=== PATIENT | female | born 1980 | race Caucasian/White ===

== ENCOUNTER → 2020-12-01 09:27 | Outpatient (CLI) | payer OTHER, SELFPAY ==
--- NOTE | 2020-12-01 09:30 | DI.RAD.S_ITS ---
PROCEDURE: XR FINGER LT MIN 2V INDICATIONS: Pain in left 4th digit TECHNIQUE: AP hand, 2 views of the 4th finger(s) acquired. COMPARISON: None. FINDINGS: Bones: Mildly displaced distal tuft fracture distal phalanx of 4th finger. No dislocations. No suspicious bony lesions. Soft tissues: No suspicious soft tissue calcifications. IMPRESSION: 4th finger distal tuft fracture of distal phalanx. Dictated by: Erwin Ibarra M.D. on 12/01/2020 at 9:06 Approved by: Erwin Ibarra M.D. on 12/01/2020 at 9:07
== END ==
PROVIDERS: Referring Provider Nurse Practitioner; Visit Provider Nurse Practitioner
DX: S62.635A Displaced fracture of distal phalanx of left ring finger, initial encounter for closed fracture (principal); X58.XXXA Exposure to other specified factors, initial encounter
CPT/HCPCS: 73140

== ENCOUNTER → 2021-09-05 09:22 | Outpatient (ROUT) | payer OTHER, SELFPAY | PROVIDERS: Visit Provider Nurse Practitioner Obstetrics & Gynecology | DX: Z34.90 Encounter for supervision of normal pregnancy, unspecified, unspecified trimester (principal); Z36.85 Encounter for antenatal screening for Streptococcus B; Z3A.36 36 weeks gestation of pregnancy | CPT/HCPCS: 87081 ==

== ENCOUNTER 2021-10-04 11:52 | Inpatient (IN) | payer OTHER, SELFPAY ==
--- NOTE | 2021-10-04 12:06 | P.HPOB_ITS ---
OB HPI Date/Time Date of admission: 10/04/21 Date Patient Seen: 10/04/21 Time Patient Seen: 12:06 History of Present Condition Chief complaint: : 3 Para: 1 Estimated Date of Delivery: 10/01/21 Estimated Gestational Age (weeks): 40.3 Narrative: Maite Caal is a 41 year old female @ [id number] by early US who presents for evaluation of labor. PROM, clear fluid @ 0600 with reactive NST in office at 0900. Elected expectant management of labor. Contractions have progressed and she has been breathing through strong, regular contractions for the last hour. Lots of FM. no VB. care w/ CNM complicated by GDMA1. Desires low intervention . Declines CE. is present and supportive. History of Present care: good care, initiated at week # (11), number of visits (11) and pounds weight gain (38) Dating criteria: LMP confirmed by 1st trimester US Ultrasounds: normal mid trimester US Obstetrical complications: gestational diabetes (A1) Medical complications: none Preadmission Labs Blood type: O (+) positive -: Antibody screen: negative, GBS status: negative, HBsAG: negative, HIV: negative and RPR/VDLR: negative -: Chlamydia screen: not detected and Gonorrhea screen: not detected HCT: 33 HCAB: negative PAP: Normal Narrative: GTT Declined, GDM diagnosed based on QID BG testing Prior (ies) History: 1- (vaginal delivery), Ruddy, 07/07/2017, 41, 31 hr,Epidural,2?,Male7 lbs 4 oz 2-SAB (miscarriage), 07/22/2020, 8 Evaluation Evaluation Baseline heart rate: 125 Variability: Moderate (11-25) monitor accelerations: Present Monitor Decelerations: Absent Contraction Frequency (minutes): 3 Uterine Contraction Intensity: Moderate Status: Category l Comments: CE deferred ON LICENSE OF [facility] Medical History No significant medical problems Family History (Updated 10/04/21 @ 12:29 by Rebecca Botello CNM) Father Diabetes mellitus Social History (Updated 10/04/21 @ 12:29 by Rebecca Botello CNM) marital status: household members: spouse and children lives independently: Yes caregiver/support person: No housing: house Smoking Status: Never smoker Meds Home Medications and Allergies Home Medications Medication Instructions Recorded Confirmed Type No Known Home Medications 10/04/21 10/04/21 History Allergies Allergy/AdvReac Type Severity Reaction Status Date / Time No Known Drug Allergies Allergy Unverified 10/04/21 12:20 Review of Systems Review of Systems ROS: Yes All systems reviewed with the patient and are negative except as otherwise documented OB Exam Resp Effort & Inspection: normal respiratory effort Auscultation: clear to auscultation bilaterally Cardio Rate: regular rate Rhythm: regular rhythm and abnormal rhythm Heart Sounds: S1 normal and S2 normal Presentation: vertex Objective Labs Result Diagrams: 10/04/21 12:35 Assessment and Plan Assessment and Plan Assessment and Plan narrative: Term Primipara Active Labor SROM x 6 hours without sx of infection GDMA1 No indication for GBS prophylaxis Cat I FHR P: Admit, routine orders. Labor support, PRN. Reassess in 4 hours or sooner, PRN. Anticipate NSVB.
[2021-10-04 12:49] LABS: Add Manual Diff / Slide Review NO; Basophils Absolute Auto 100 /uL (0-100); Basophils Percent Auto 0.8 % (0-2); Eosinophils Absolute Auto 0 /uL (0-450); Eosinophils Percent Auto 0.1 % (2-4); Hematocrit 35.5 % (36-46); Hemoglobin 11.8 g/dL (12.0-16.0); Lymphocytes Absolute Auto 1600 /uL (1100-4500); Lymphocytes Percent Auto 14.9 % (25-40); Mean Corpuscular HGB Conc 33.3 % (30-36); Mean Corpuscular Hemoglobin 29.7 PG (26-34); Mean Corpuscular Volume 89.3 fL (80-100); Monocytes Absolute Auto 600 /uL (0-900); Monocytes Percent Auto 5.5 % (3-14); Neutrophils Absolute Auto 8600 /uL (1500-7000); Neutrophils Percent Auto 78.7 % (50-75); Platelet Count 224 X10^3/uL (150-400); Red Blood Cell Count 3.97 X10^6/uL (4.0-5.2); Red Cell Distribution Width 15.9 % (11.6-14.8); White Blood Cell Count 10.9 X10^3/uL (4.5-11.0)
[2021-10-04 13:01] VITALS: BP 128/82
[2021-10-04 13:19] LABS: COVID19 -Nasal RAPID Negative (Negative)
[2021-10-04] MEDS: OXYTOCIN PREMIX 30 UNIT/500 ML PLAST..BAG 200 UNIT IV (14:56)
--- NOTE | 2021-10-04 15:09 | PM.OBPRVD ---
Events: Premature Rupture Membrane Labor & Delivery Delivery date: 10/04/21 Intrapartal Events: None Cervical ripening method: none Induction method: none Delivery monitor: external FHT Route of delivery: Episiotomy description: None L&D Laceration Description: Periurethral - 1st Degree Estimated blood loss (mL): 175 Anesthesia Type: None [place]oden Baby 1: gender: Male Presentation: vertex Position: Left Occiput Anterior Placenta delivery description: Spontaneous Cord Vessel Description: 3 Vessels, Nuchal Cord and True Knot score (1 min): 8 score (5 min): 9 weight: 3.877 kg Narrative: Maite labored well in a variety of positions. Was presumed complete with spontaneous urge to push. NSVB of a vigorous baby boy in SHAUN position with a single loose nuchal cord in a true knot. Maite was recumbent on the CUB chair for and was assisted to hands and knees after the delivery of the head and tight shoulders were noted. occurred easily with Jaylon maneuver < 60 seconds after the delivery of the head. Nuchal was reduced and terminal meconium was noted. the was passed through maternal legs to [facility]. The couplet was assisted to bed. 30 units of pitocin in 500mL LR was started at 300mL/hr for AMTSL. After cessation of pulsation, the cord was double clamped by CNM and cut by FOB. Gentle cord traction and single maternal push led to spontaneous, Schultze delivery of an apparently intact placenta, membranes and 3VC. Fundus immediately firm and bleeding minimal. QBL 175mL. Inspection revealed a well approximated, hemostatic, 1st degree, perineal laceration with no indication for repair. Both mother and baby stable and skin to skin as I left the room. Plan for aftercare: Routine care
[2021-10-04] MEDS: KETOROLAC 30 MG/ML VIAL IV (16:13)
[2021-10-04] MEDS: DERMOPLAST SPRAY 20% 60 ML 1 SPRAY TOP (16:13)
[2021-10-04] MEDS: LANOLIN OINT 7 GM 1 APPLIC TOP (16:13)
[2021-10-04] MEDS: IBUPROFEN 600 MG TABLET PO (22:30)
[2021-10-05] MEDS: IBUPROFEN 600 MG TABLET PO (05:28)
--- NOTE | 2021-10-05 13:53 | P.DS_ITS ---
Discharge Providers Provider Date of admission: 10/04/21 11:52 Discharge Date: 10/05/21 Consults: 10/05/21 15:07 Consult to [employer] Supervisor Routine Comment: Discharge provider: Rebecca Botello CNM Summary Hospital Course Date Patient Seen: 10/05/21 Time Patient Seen: 13:00 Diagnoses: o70 Hospital Course: 22 hours S/P NSVB yesterday. Voiding, ambulating and independen tly. Pain is well controlled w/ PO medication. Lochia is red, and moderate to light, without clots. Tolerating a general diet. Desires discharge. Peripartum Data Infant Delivery Method: Natural Vaginal Laceration Description: Perineal - 1st Degree Episiotomy description: None complications: none 1: Gender: Male Disposition of : other (admitted w/ parents at bedside) Discharge Diagnosis (1) First degree perineal laceration during delivery: Status: Acute Status at Discharge Cognitive/behavioral status at discharge: oriented Functional status at discharge: independent ambulation Overall status at discharge: patient is progressing back to baseline Time Spent with Patient Time attestation: Total time spent providing and/or coordinating discharge services: Time spent: Less than 30 minutes Objective Labs Result Diagrams: 10/04/21 12:35 Exam Vital Signs (past 8 hours): Bp 112/71, HR 100bpm, RR 17/min, T 98.6F Other: Fundus firm @ u-1, lochia small, no clots. Perineum well approximated. Discharge Plan Discharge Plan Patient Disposition: Home Discharge orders & Medications Prescriptions: No Action No Known Home Medications 0RF Follow up/Referrals: Rebecca Botello CNM [[facility] [employer] Operator] - (Follow-up by Telehealth 10/29/21 @ 1:30pm Follow-up in office 11/15/21 @ 11:00am) Diet/Activity/Treatments Diet: Diet as Tolerated Activity: pelvic rest x 6 weeks Skin/Wound/Dressing Care Report to your healthcare provider any signs of infection, such as:: chills, fever, increased pain, unusual drainage and unusual redness Visit Report/Discharge Packet Stand Alone Forms: Discharge: Care
[2021-10-05 15:48] VITALS: BP 128/82; PULSE 80; RESP 18; TEMP 36.6
== END 2021-10-05 16:29 | disposition home or self-care (01) | DRG 807 ==
PROVIDERS: Admitting Provider Nurse Practitioner Obstetrics & Gynecology; Referring Provider Nurse Practitioner Obstetrics & Gynecology; Visit Provider Nurse Practitioner Obstetrics & Gynecology
DX: O48.0 Post-term pregnancy (principal); Z37.0 Single live birth; O24.429 Gestational diabetes mellitus in childbirth, unspecified control; Z3A.40 40 weeks gestation of pregnancy; O42.02 Full-term premature rupture of membranes, onset of labor within 24 hours of rupture; O71.82 Other specified trauma to perineum and vulva; P03.82 Meconium passage during delivery; O69.81X0 Labor and delivery complicated by cord around neck, without compression, not applicable or unspecified; O69.2XX0 Labor and delivery complicated by other cord entanglement, with compression, not applicable or unspecified; Z20.822 Contact with and (suspected) exposure to COVID-19
CPT/HCPCS: 36415; 59050; 85025; 86850; 86900; 86901; 87635; C9803; G0379; J1885; J2590

== ENCOUNTER 2021-10-14 04:31 | Inpatient (IN) | payer OTHER, SELFPAY ==
[2021-10-14] VITALS (18 sets, daily range): BP systolic 73–150; BP diastolic 44–83; PULSE 82–134; RESP 14–20; TEMP 36.8–37.6; O2SAT 98–99; BMI 23.5
--- NOTE | 2021-10-14 | PATH_ITS ---
[facility] Accession Number: [id number] No. of containers..01 Tissue . 01 Material submitted: . product of conception - PRODUCTS OF CONCEPTION . 01 Clinical history: . BREAST MASS BIOPSY 1:00 9 CMFN . 02 Diagnosis: Products of Conception: No products of conception identified. Additional levels through the block are non-contributory. MRV 10/16/2021 1503 Local . 02 Electronically signed: . Lana Estrella MD, Pathologist NPI- [id number] . 01 Gross description: . Received in formalin, labeled with the patient's name and additionally labeled products of conception, is an aggregate of irregular johnson-brown soft tissue fragments measuring 7.5 x 7.5 x 1.8 cm. Industrial Engineering Professor sections are submitted in cassettes A1-A3. ([id number]) /MRV 10/15/2021 1248 Local . 02 Pathologist provided ICD-10: O02.1 . 02 CPT . 102676 Specimen Comment: A courtesy copy of this report has been sent to [facility] Pathology Performed at: 01 [facility] Cytology [address], [place], [place] [id number] MD Tony Jama MD Phone: [phone] Performed at: 02 [facility] [place] [address] [place], [place] [id number] MD Merlene Jenkins MD Phone: [phone]
[2021-10-14 04:51] LABS: Add Manual Diff / Slide Review NO; Basophils Absolute Auto 100 /uL (0-100); Basophils Percent Auto 0.7 % (0-2); Eosinophils Absolute Auto 0 /uL (0-450); Eosinophils Percent Auto 0.3 % (2-4); Hematocrit 31.8 % (36-46); Hemoglobin 10.4 g/dL (12.0-16.0); Lymphocytes Absolute Auto 1700 /uL (1100-4500); Lymphocytes Percent Auto 18.1 % (25-40); Mean Corpuscular HGB Conc 32.8 % (30-36); Mean Corpuscular Hemoglobin 29.3 PG (26-34); Mean Corpuscular Volume 89.4 fL (80-100); Monocytes Absolute Auto 400 /uL (0-900); Neutrophils Absolute Auto 7100 /uL (1500-7000); Neutrophils Percent Auto 76.9 % (50-75); Platelet Count 318 X10^3/uL (150-400); Red Blood Cell Count 3.56 X10^6/uL (4.0-5.2); Red Cell Distribution Width 15.9 % (11.6-14.8); White Blood Cell Count 9.2 X10^3/uL (4.5-11.0)
--- NOTE | 2021-10-14 04:59 | DI.US.S_ITS ---
PROCEDURE: US PELVIC LIMITED INDICATIONS: significant vaginal bleeding, 10 days post TECHNIQUE: Real-time transabdominal scanning was performed of the pelvic organs, with image documentation. COMPARISON: [facility], US, US PELVIC COMPLETE WITH TRANSVAGINAL, 07/27/2020, 16:01. FINDINGS: Uterus: Uterus is anteverted. Uterus is enlarged and heterogeneous, consistent with recent . The endometrium is thickened and heterogeneous but demonstrates no increased vascularity. Possible exophytic uterine fibroid adjacent to the left uterus measuring 2.8 x 2.6 x 2.0 cm. Ovaries: The right ovary measures 2.6 x 2.1 x 2.2 cm. The left ovary measures 2.0 x 1.5 x 1.9 cm. The ovaries have a normal sonographic appearance. No adnexal masses are seen. Other: No pathologic free abdominal or pelvic fluid. IMPRESSION: 1. Enlarged uterus with heterogeneous echotexture consistent with recent . There is thickening and heterogeneity of the endometrium. Differential diagnoses include clots versus retained products of conception. No increased vascularity of the endometrium to suggest endometritis. 2. Question of an exophytic fibroid along the left uterine wall. Follow-up suggested. 3. No significant free fluid. No significant discrepancy with the date night sitter radiology preliminary report. We strive to produce accurate, complete, and clear reports of imaging services. To assist us in improving patient care, this report was composed using standard report templates and voice recognition software. Therefore, it may contain abnormal punctuation, insertions and/or omissions. Occasional wrong-word or sound-alike substitutions may occur. Though we review the report and make efforts to correct it, we do recommend that the report be read carefully in proper context to recognize any text inaccuracies. Dictated by: Iain De Jesus M.D. on 10/14/2021 at 8:43 Approved by: Iain De Jesus M.D. on 10/14/2021 at 8:51
[2021-10-14 05:01] LABS: Alanine Aminotransferase 35 IU/L (<35); Albumin 3.1 g/dL (3.5-5.0); Albumin Globulin Ratio 1.3 (1.0-2.8); Alkaline Phosphatase 87 U/L (38-126); Aspartate Aminotransferase 28 IU/L (14-36); Bilirubin Total 0.2 mg/dL (0.2-1.3); Blood Urea Nitrogen 10 mg/dL (7-17); Calcium 8.5 mg/dL (8.4-10.2); Carbon Dioxide 25 mmol/L (22-32); Chloride 108 mmol/L (98-107); Estimated Glomerular Filt Rate > 60.0 mL/min (>60); Globulin 2.4 g/dL (1.7-4.1); Glucose 134 mg/dL (70-100); HEMOLYSIS < 15 (0-50); Potassium 4.2 mmol/L (3.4-5.1); Sodium 136 mmol/L (137-145); Total Protein 5.5 g/dL (6.3-8.2)
[2021-10-14 05:02] LABS: Magnesium 1.7 mg/dL (1.6-2.3)
[2021-10-14 05:03] LABS: COVID19 -Nasal RAPID Negative (Negative)
--- NOTE | 2021-10-14 05:04 | PC.NURSE ---
Soaked adult depend removed and pt passed grapefruit-size clot and copious dark red blood from vaginal introitus. Urine sample obtained via straight cath. Dr Shane aware, orders obtained. Fundus massaged until firm.
[2021-10-14] MEDS: METHYLERGONOVINE 0.2 MG/ML VIAL IM (05:15)
[2021-10-14] MEDS: miSOPROStoL 200 MCG TABLET 800 MCG PR (05:17)
[2021-10-14 05:30] LABS: Appearance Urine UA CLEAR; Bilirubin Urine UA NEGATIVE (NEGATIVE); Color Urine UA YELLOW; Glucose Urine UA NEGATIVE (Negative); Ketones Urine UA NEGATIVE (NEGATIVE); Leukocyte Esterase Urine UA NEGATIVE (NEGATIVE); Nitrite Urine UA NEGATIVE (Negative); Occult Blood Urine UA 1+ (Negative); Protein Urine UA NEGATIVE (Negative); Specific Gravity Urine UA <=1.005 (1.000-1.035); Urobilinogen Urine UA 0.2 E.U./dL (0.2)
[2021-10-14 05:37] LABS: RBC Urine 0-1/HPF (0-5/HPF); WBC Urine None Seen (0-5/HPF); pH Urine UA 5.5 (4.5-8.0)
[2021-10-14 05:38] LABS: Bacteria Urine Occasional (0-1); Culture Indicated Urine Cult Not Indicated; Squamous Epithelial Cell Urine 0-1 /HPF (0-5/HPF); Transitional Epi Cells Urine 0-1/HPF (0-5/HPF)
--- NOTE | 2021-10-14 05:54 | ED.FEMALEGU ---
HPI - Female Genitourinary General Chief complaint: Vaginal Bleeding Stated complaint: bleeding Time Seen by Provider: 10/14/21 04:35 Source: patient and EMS Mode of arrival: EMS History of Present Illness HPI Narrative: 41-year-old female nonsmoker presents by air medical transport ([facility]) for evaluation of significant vaginal bleeding over the course of the day. She states that she had a vaginal delivery which was unremarkable 10 days ago and had been in her normal state of health until this afternoon when she passed a large fist sized clot and then proceeded to bleed significantly, through multiple pads over the course of the day. She was evaluated on scene by paramedics on [place] and due to weather restrictions [employer] was unable to fly so they called . She feels a bit fatigued and nauseated but denies any significant dizziness, weakness or lightheadedness. She has some minor cramping but is otherwise largely asymptomatic. She has had no fever or chills and denies urinary complaints. EMS gave TXA 1 g IV x2 as well as Pitocin 40 units prior to [facility] arrival. [facility] gave 50 100 cc of normal saline EN route. At 1 point her blood pressure was as high as the 170s and at that point she was having some blurring of her vision but that resolved in route and on her arrival her symptoms were only cramping in ongoing bleeding Related Data Home Medications Medication Instructions Recorded Confirmed No Known Home Medications 10/04/21 10/04/21 Allergies Allergy/AdvReac Type Severity Reaction Status Date / Time No Known Drug Allergies Allergy Unverified 10/04/21 12:20 Review of Systems Review of Systems Narrative: GENERAL: See HPI HEENT: Denies sinus pain, ear pain, sore throat, difficulty swallowing, dizziness. RESPIRATORY: Denies dyspnea, cough, wheezing, hemoptysis, sputum. CARDIOVASCULAR: Denies chest pain, palpitations, orthopnea, edema, GASTROINTESTINAL: Denies nausea, vomiting, abdominal pain, diarrhea, constipation, melena. : see HPI MUSCULOSKELETAL: denies weakness, joint pain, or bony pain SKIN: Denies rash, skin lesions, or other NEUROLOGIC: Denies weakness, headache, numbness, change in speech, confusion, seizures, incoordination. PSYCHIATRIC: No concerning psychosocial issues. 12 point review of systems is negative except for those stated above Patient History Medical History No significant medical problems Family History Father Diabetes mellitus Exam Narrative Exam Narrative: GENERAL: [41 year old patient appears stated age. Well-developed patient, in mild distress. Nervous and tearful HEAD: Atraumatic. Normocephalic. EYES: Pupils equal round and reactive. Extraocular motions intact. No scleral icterus. No injection or drainage. ENT: Nose without bleeding, purulent drainage. Throat without erythema, tonsillar hypertrophy or exudate. Airway patent. NECK: Trachea midline. Non tender CARDIOVASCULAR: Regular rate and rhythm without murmurs, gallops, or rubs. RESPIRATORY: Clear to auscultation. Breath sounds equal bilaterally. No wheezes, rales, or rhonchi. GASTROINTESTINAL: Abdomen soft, non-tender, nondistended. PELVIC: deferred to OB, however female nursing emergency medicine at bedside while setting up for pelvic and multiple large clots with evidence of active bleeding noted EXTREMITIES: No edema or joint tenderness. BACK: Nontender without deformity or crepitance. No flank tenderness. NEURO: AOx3. SKIN: No rash or erythema of visible areas Initial Vital Signs Initial Vital Signs: Vital Signs Temperature 98.8 F 10/14/21 04:37 Pulse Rate 94 H 10/14/21 04:37 Respiratory Rate 15 10/14/21 04:37 Blood Pressure 129/83 10/14/21 04:37 Pulse Oximetry 98 10/14/21 04:37 Course Orders Ordered: ED Orders 10/14/21 04:40 COVID19 -Nasal swab/Pre-Proc Stat Complete Blood Count AUTO DIFF Stat Comprehensive Metabolic Panel Stat Magnesium Stat Type and Screen Stat 10/14/21 04:59 US pelvic limited Stat 10/14/21 05:10 Urinalysis and Microscopic Stat Discontinued Medications Cefazolin Sodium/Dextrose (Cefazolin 2 Gm/20 Ml Syringe) 2 gm IV NOW ONE Stop: 10/14/21 05:53 Methylergonovine Maleate (Methylergonovine 0.2 Mg/Ml Vial) 0.2 mg IM NOW ONE Stop: 10/14/21 05:00 Last Admin: 10/14/21 05:15 Dose: 0.2 mg Documented by: AMY Misoprostol (Misoprostol 200 Mcg Tablet) 800 mcg MI NOW ONE Stop: 10/14/21 05:00 Last Admin: 10/14/21 05:17 Dose: 800 mcg Documented by: AMY Ondansetron HCl (Ondansetron 4 Mg/2 Ml Inj) 4 mg IV NOW ONE Stop: 10/14/21 05:53 Consultations Consultation #1: call to Dr. Alvarez, she request pelvic ultrasound, Methergine 0.2 mg IM and Cytotec 800 mcg p.r. Vital Signs Vital signs: Vital Signs - 8 hr 10/14/21 04:37 10/14/21 04:53 10/14/21 05:00 Temperature 98.8 F Pulse Rate 94 H 103 H 101 H Respiratory Rate 15 Blood Pressure 129/83 150/79 H Pulse Oximetry 98 99 99 MDM - Female Genitourinary Lab Data Result diagrams: 10/14/21 04:40 10/14/21 04:40 Labs: Lab Results 10/14/21 10/14/21 10/14/21 Range/Units 04:40 04:40 04:40 WBC 9.2 (4.5-11.0) X10^3/uL RBC 3.56 L (4.0-5.2) X10^6/uL Hgb 10.4 L (12.0-16.0) g/dL Hct 31.8 L (36-46) % MCV 89.4 (80-100) fL MCH 29.3 (26-34) PG MCHC 32.8 (30-36) % RDW 15.9 H (11.6-14.8) % Plt Count 318 (150-400) X10^3/uL Neut % (Auto) 76.9 H (50-75) % Lymph % (Auto) 18.1 L (25-40) % [place] % (Auto) 4.0 (3-14) % Eos % (Auto) 0.3 L (2-4) % Baso % (Auto) 0.7 (0-2) % Neut # (Auto) 7100 H (0714-4149) /uL Lymph # (Auto) 1700 (5690-0355) /uL [place] # (Auto) 400 (0-900) /uL Eos # (Auto) 0 (0-450) /uL Baso # (Auto) 100 (0-100) /uL Sodium 136 L (137-145) mmol/L Potassium 4.2 (3.4-5.1) mmol/L Chloride 108 H (98-107) mmol/L Carbon Dioxide 25 (22-32) mmol/L BUN 10 (7-17) mg/dL Creatinine 0.77 (0.52-1.04) mg/dL Estimated GFR > 60.0 (>60) mL/min BUN/Creatinine Ratio 13.0 (6-22) Glucose 134 H (70-100) mg/dL Calcium 8.5 (8.4-10.2) mg/dL Magnesium 1.7 (1.6-2.3) mg/dL Total Bilirubin 0.2 (0.2-1.3) mg/dL AST 28 (14-36) IU/L ALT 35 H (<35) IU/L Alkaline Phosphatase 87 (38-126) U/L Total Protein 5.5 L (6.3-8.2) g/dL Albumin 3.1 L (3.5-5.0) g/dL Globulin 2.4 (1.7-4.1) g/dL Albumin/Globulin Ratio 1.3 (1.0-2.8) Urine Color Urine Appearance Urine pH (4.5-8.0) Ur Specific [place] (1.000-1.035) Urine Protein (Negative) Urine Glucose (UA) (Negative) g/dL Urine Ketones (NEGATIVE) Urine Occult Blood (Negative) Urine Nitrate (Negative) Urine Bilirubin (NEGATIVE) Urine Urobilinogen (0.2) E.U./dL Ur Leukocyte Esterase (NEGATIVE) Urine RBC (0-5/HPF) Urine WBC (0-5/HPF) Ur Squamous Epith Cells (0-5/HPF) Ur Transition Epith Cell (0-5/HPF) Urine Bacteria (None) Ur Culture Indicated? SARS-CoV-2 (PCR) (Negative) Blood Type Antibody Screen 10/14/21 10/14/21 10/14/21 Range/Units 04:40 04:40 05:10 WBC (4.5-11.0) X10^3/uL RBC (4.0-5.2) X10^6/uL Hgb (12.0-16.0) g/dL Hct (36-46) % MCV (80-100) fL MCH (26-34) PG MCHC (30-36) % RDW (11.6-14.8) % Plt Count (150-400) X10^3/uL Neut % (Auto) (50-75) % Lymph % (Auto) (25-40) % [place] % (Auto) (3-14) % Eos % (Auto) (2-4) % Baso % (Auto) (0-2) % Neut # (Auto) (7690-6128) /uL Lymph # (Auto) (1552-5685) /uL [place] # (Auto) (0-900) /uL Eos # (Auto) (0-450) /uL Baso # (Auto) (0-100) /uL Sodium (137-145) mmol/L Potassium (3.4-5.1) mmol/L Chloride (98-107) mmol/L Carbon Dioxide (22-32) mmol/L BUN (7-17) mg/dL Creatinine (0.52-1.04) mg/dL Estimated GFR (>60) mL/min BUN/Creatinine Ratio (6-22) Glucose (70-100) mg/dL Calcium (8.4-10.2) mg/dL Magnesium (1.6-2.3) mg/dL Total Bilirubin (0.2-1.3) mg/dL AST (14-36) IU/L ALT (<35) IU/L Alkaline Phosphatase (38-126) U/L Total Protein (6.3-8.2) g/dL Albumin (3.5-5.0) g/dL Globulin (1.7-4.1) g/dL Albumin/Globulin Ratio (1.0-2.8) Urine Color Yellow Urine Appearance Clear Urine pH 5.5 (4.5-8.0) Ur Specific [place] <=1.005 (1.000-1.035) Urine Protein Negative (Negative) Urine Glucose (UA) Negative (Negative) g/dL Urine Ketones Negative (NEGATIVE) Urine Occult Blood 1+ H (Negative) Urine Nitrate Negative (Negative) Urine Bilirubin Negative (NEGATIVE) Urine Urobilinogen 0.2 (0.2) E.U./dL Ur Leukocyte Esterase Negative (NEGATIVE) Urine RBC 0-1/hpf (0-5/HPF) Urine WBC None seen (0-5/HPF) Ur Squamous Epith Cells 0-1 /hpf (0-5/HPF) Ur Transition Epith Cell 0-1/hpf (0-5/HPF) Urine Bacteria Occasional (0-1) (None) Ur Culture Indicated? Cult not indicated SARS-CoV-2 (PCR) Negative (Negative) Blood Type O Positive Antibody Screen Negative Discharge Plan Departure Patient Disposition: Admitted to Surgery Clinical Impression: Vaginal bleeding Prescriptions: No Action No Known Home Medications 0RF
[2021-10-14] MEDS: ONDANSETRON 4 MG/2 ML INJ IV (05:56)
--- NOTE | 2021-10-14 06:02 | PM.GYNHP.1 ---
History of Present Illness History of Present Illness Reason for admission: vaginal bleeding Narrative: Maite Caal is a 41 year old female who is 10 days vaginal delivery who began hemorrhaging this evening. [facility] Medical History No significant medical problems Family History Father Diabetes mellitus Social History (Updated 10/04/21 @ 12:29 by Rebecca Botello CNM) marital status: household members: spouse and children lives independently: Yes caregiver/support person: No housing: house Smoking Status: Never smoker Meds Home Medications and Allergies Home Medications Medication Instructions Recorded Confirmed Type No Known Home Medications 10/04/21 10/04/21 History Allergies Allergy/AdvReac Type Severity Reaction Status Date / Time No Known Drug Allergies Allergy Unverified 10/04/21 12:20 Review of Systems Review of Systems Narrative: Patient denies headaches, scotomata, epigastric pain. She had normal lochia until this evening when she started passing large amounts of blood. She denies fevers. She had been urinating well and normal bowel movements. She is breast-feeding. Her was complicated by diet-controlled gestational diabetes only. Exam Vital Signs (past 8 hours): - 10/14/21 04:37 10/14/21 04:53 10/14/21 05:00 Temperature 98.8 F Pulse Rate 94 H 103 H 101 H Respiratory Rate 15 Blood Pressure 129/83 150/79 H Pulse Oximetry 98 99 99 Oxygen Delivery Method Room Air Narrative Exam Narrative: HEENT exam within normal limits. Lungs are clear to auscultation percussion. Heart is regular rate rhythm no S3-S4 murmurs. Abdomen is soft, nontender. Uterus is firm, U -2, nontender. Large amount of blood coming from the vagina, pelvic exam not performed. Extremities without edema and nontender. Objective Imaging US - abdomen: My impression: Debris in the uterus unclear if just blood or at any retained products of conception but no areas specifically of increased vascularity. Labs Result Diagrams: 10/14/21 04:40 10/14/21 04:40 Labs: Laboratory Results - last 24 hr 10/14/21 10/14/21 10/14/21 04:40 04:40 04:40 WBC 9.2 RBC 3.56 L Hgb 10.4 L Hct 31.8 L MCV 89.4 MCH 29.3 MCHC 32.8 RDW 15.9 H Plt Count 318 Neut % (Auto) 76.9 H Lymph % (Auto) 18.1 L [place] % (Auto) 4.0 Eos % (Auto) 0.3 L Baso % (Auto) 0.7 Neut # (Auto) 7100 H Lymph # (Auto) 1700 [place] # (Auto) 400 Eos # (Auto) 0 Baso # (Auto) 100 Sodium 136 L Potassium 4.2 Chloride 108 H Carbon Dioxide 25 BUN 10 Creatinine 0.77 Estimated GFR > 60.0 BUN/Creatinine Ratio 13.0 Glucose 134 H Calcium 8.5 Magnesium 1.7 Total Bilirubin 0.2 AST 28 ALT 35 H Alkaline Phosphatase 87 Total Protein 5.5 L Albumin 3.1 L Globulin 2.4 Albumin/Globulin Ratio 1.3 Urine Color Urine Appearance Urine pH Ur Specific [place] Urine Protein Urine Glucose (UA) Urine Ketones Urine Occult Blood Urine Nitrate Urine Bilirubin Urine Urobilinogen Ur Leukocyte Esterase Urine RBC Urine WBC Ur Squamous Epith Cells Ur Transition Epith Cell Urine Bacteria Ur Culture Indicated? SARS-CoV-2 (PCR) Blood Type Antibody Screen 10/14/21 10/14/21 10/14/21 04:40 04:40 05:10 WBC RBC Hgb Hct MCV MCH MCHC RDW Plt Count Neut % (Auto) Lymph % (Auto) [place] % (Auto) Eos % (Auto) Baso % (Auto) Neut # (Auto) Lymph # (Auto) [place] # (Auto) Eos # (Auto) Baso # (Auto) Sodium Potassium Chloride Carbon Dioxide BUN Creatinine Estimated GFR BUN/Creatinine Ratio Glucose Calcium Magnesium Total Bilirubin AST ALT Alkaline Phosphatase Total Protein Albumin Globulin Albumin/Globulin Ratio Urine Color Yellow Urine Appearance Clear Urine pH 5.[address] <=1.005 Urine Protein Negative Urine Glucose (UA) Negative Urine Ketones Negative Urine Occult Blood 1+ H Urine Nitrate Negative Urine Bilirubin Negative Urine Urobilinogen 0.2 Ur Leukocyte Esterase Negative Urine RBC 0-1/hpf Urine WBC None seen Ur Squamous Epith Cells 0-1 /hpf Ur Transition Epith Cell 0-1/hpf Urine Bacteria Occasional (0-1) Ur Culture Indicated? Cult not indicated SARS-CoV-2 (PCR) Negative Blood Type O Positive Antibody Screen Negative Assessment & Plan Assessment and plan (1) hemorrhage, delayed (> 24 hrs): Status: Acute Assessment & Plan narrative: 10 days hemorrhage. Patient was given Cytotec and IM Methergine. She had received Pitocin and 2 doses of tranexemic acid on [place] prior to being flown off. Patient will be taken to the operating room for a uterine curettage and placement of a uterine tamponade balloon. Consent form for uterine curettage and placement of balloon was reviewed with the patient. Risk of perforation of the uterus that could result in damage to internal structures such as bowel, bladder, ureters that may require additional surgery to repair. Risk of infection. Patient is agreeable to blood transfusion if necessary to save her life. Consent form signed and questions answered. COVID-19 COVID-19 status: Negative Result date/Date tested (Pos, Neg/Pending): 10/14/21 Time Spent With Patient Time with patient: less than 30 minutes Critical Care time: I spent a total of [] minutes of critical care time on this patient's care today; this time is exclusive of procedural time.
--- NOTE | 2021-10-14 06:18 | PM.PREOP ---
Pre-operative Note COVID-19 COVID-19 status: Negative Result date/Date tested (Pos, Neg/Pending): 10/14/21 Criteria for continued procedure: Non-surgical alternatives not available or appropriate per current SOC Interval Note History & Physical reviewed/Exam performed by Physician: Yes Changes to H&P: No
--- NOTE | 2021-10-14 06:27 | SUR.OPER ---
Lithotomy on padded OR bed, head on pillow, arms secured on padded arm boards at <90 degrees abduction. Legs secured in padded yellow fins stirrups.
--- NOTE | 2021-10-14 07:22 | P.OP_ITS ---
Operative Date/Time/Diagnoses Date of procedure: 10/14/21 Time of procedure: 07:22 Pre-op diagnosis: 10 days hemorrhage Post-op diagnosis: same (Retained placental membranes) Procedure & Clinicians Procedure: Uterine curettage with placement uterine tamponade balloon Same procedure as scheduled: Yes Indications: Hemorrhage 10 days Surgeon: Sonal Alvarez Click Yes if Unassisted: Yes Anesthesia Type: General Operative Notes Findings: Retained placental membranes Closure Type: not applicable Specimen(s): other (Uterine curettings) Applied: device(s) (Uterine tamponade balloon) Estimated Blood Loss (mL): 100 Blood products transfused: none Procedure in detail: Patient was brought to the operating room where she underwent general anesthesia. She was placed in the supine position in low [place] stirrups. 2 g of Ancef were in prior to beginning the case. Warming was with blankets. Pulsatile stockings were in place and functional. A check system was reviewed with the staff in the room prior to the procedure. Retractors were placed in the vagina and there did not appear to be any tears in cervix or vagina. The first-degree tear at the vaginal opening appears to be healing well. A ring f orcep was placed on the anterior lip of the cervix. Gentle curettage was performed with removal of some retained placental membrane fragments. A uterine tamponade balloon was placed and inflated with 240 cc of fluid. Patient went to the recovery room in stable condition. Complications: none Post-operative Condition: stable Disposition: other ( Center) Plan for aftercare: Removal Bakri balloon in 24 hours bleeding remained stable after removal
--- NOTE | 2021-10-14 08:00 | PC.NURSE ---
pt presents from [facility] via stretcher. pt has Martha toddon in uterus with drainage bag attached. pt attached to scd's. pt has lr infusing at 100cc/hr via pump. bleeding scant. uterus firm and U-2
--- NOTE | 2021-10-14 08:15 | PC.NURSE ---
zacarias cath inserted 16 fr.
--- NOTE | 2021-10-14 08:15 | PC.NURSE ---
pt given the choice of voiding on bedpan, up to bathroom, or zacarias cath. pt requested zacarias cath. pt states she doesn't feel like she can get up to the bathroom right now.
[2021-10-14] MEDS: LACTATED RINGERS 1,000 ML 100 ML IV ×3 (08:59→20:34)
[2021-10-14 13:36] LABS: Add Manual Diff / Slide Review NO; Basophils Absolute Auto 0 /uL (0-100); Basophils Percent Auto 0.1 % (0-2); Eosinophils Absolute Auto 0 /uL (0-450); Hematocrit 26.3 % (36-46); Hemoglobin 8.6 g/dL (12.0-16.0); Lymphocytes Absolute Auto 1300 /uL (1100-4500); Lymphocytes Percent Auto 11.1 % (25-40); Mean Corpuscular HGB Conc 32.9 % (30-36); Mean Corpuscular Hemoglobin 29.2 PG (26-34); Mean Corpuscular Volume 88.7 fL (80-100); Monocytes Absolute Auto 100 /uL (0-900); Neutrophils Absolute Auto 9900 /uL (1500-7000); Neutrophils Percent Auto 87.8 % (50-75); Platelet Count 333 X10^3/uL (150-400); Red Blood Cell Count 2.96 X10^6/uL (4.0-5.2); Red Cell Distribution Width 15.5 % (11.6-14.8); White Blood Cell Count 11.2 X10^3/uL (4.5-11.0)
--- NOTE | 2021-10-14 14:25 | PC.NURSE ---
pt up to bedside commode. pt got light headed and dizzy on bedside commode.
--- NOTE | 2021-10-14 17:00 | PC.NURSE ---
pt hasn't really eaten much today. she says she doesn't feel like it. pt encouraged to eat. pt has eaten a popsicle. pt has been served all three meal today.
--- NOTE | 2021-10-14 18:25 | PC.NURSE ---
pt states she wants zacarias removed. zacarias dc'd, then pt c/o feeling lightheaded and dizzy.
--- NOTE | 2021-10-14 18:29 | P.PN_ITS ---
Subjective Subjective Date Patient Seen: 10/14/21 Time Patient Seen: 18:29 Interval history: Patient just does not feel good. Crampy. Slightly nauseated. She does not feel well when she is up and ambulatory, feeling lightheaded and dizzy. Exam Vital Signs (past 8 hours): Oxygen Delivery Method Room Air Narrative Exam Narrative: Abdomen is soft, nontender. Uterus is firm, U -2, minimally tender. Minimal vaginal bleeding. Extremities without edema and nontender. Objective Labs Result Diagrams: 10/14/21 13:24 10/14/21 04:40 Labs: Laboratory Results - last 24 hr 10/14/21 10/14/21 10/14/21 04:40 04:40 04:40 WBC 9.2 RBC 3.56 L Hgb 10.4 L Hct 31.8 L MCV 89.4 MCH 29.3 MCHC 32.8 RDW 15.9 H Plt Count 318 Neut % (Auto) 76.9 H Lymph % (Auto) 18.1 L [place] % (Auto) 4.0 Eos % (Auto) 0.3 L Baso % (Auto) 0.7 Neut # (Auto) 7100 H Lymph # (Auto) 1700 [place] # (Auto) 400 Eos # (Auto) 0 Baso # (Auto) 100 Sodium 136 L Potassium 4.2 Chloride 108 H Carbon Dioxide 25 BUN 10 Creatinine 0.77 Estimated GFR > 60.0 BUN/Creatinine Ratio 13.0 Glucose 134 H Calcium 8.5 Magnesium 1.7 Total Bilirubin 0.2 AST 28 ALT 35 H Alkaline Phosphatase 87 Total Protein 5.5 L Albumin 3.1 L Globulin 2.4 Albumin/Globulin Ratio 1.3 Urine Color Urine Appearance Urine pH Ur Specific [place] Urine Protein Urine Glucose (UA) Urine Ketones Urine Occult Blood Urine Nitrate Urine Bilirubin Urine Urobilinogen Ur Leukocyte Esterase Urine RBC Urine WBC Ur Squamous Epith Cells Ur Transition Epith Cell Urine Bacteria Ur Culture Indicated? SARS-CoV-2 (PCR) Blood Type Antibody Screen 10/14/21 10/14/21 10/14/21 04:40 04:40 05:10 WBC RBC Hgb Hct MCV MCH MCHC RDW Plt Count Neut % (Auto) Lymph % (Auto) [place] % (Auto) Eos % (Auto) Baso % (Auto) Neut # (Auto) Lymph # (Auto) [place] # (Auto) Eos # (Auto) Baso # (Auto) Sodium Potassium Chloride Carbon Dioxide BUN Creatinine Estimated GFR BUN/Creatinine Ratio Glucose Calcium Magnesium Total Bilirubin AST ALT Alkaline Phosphatase Total Protein Albumin Globulin Albumin/Globulin Ratio Urine Color Yellow Urine Appearance Clear Urine pH 5.5 Ur Specific [place] <=1.005 Urine Protein Negative Urine Glucose (UA) Negative Urine Ketones Negative Urine Occult Blood 1+ H Urine Nitrate Negative Urine Bilirubin Negative Urine Urobilinogen 0.2 Ur Leukocyte Esterase Negative Urine RBC 0-1/hpf Urine WBC None seen Ur Squamous Epith Cells 0-1 /hpf Ur Transition Epith Cell 0-1/hpf Urine Bacteria Occasional (0-1) Ur Culture Indicated? Cult not indicated SARS-CoV-2 (PCR) Negative Blood Type O Positive Antibody Screen Negative 10/14/21 13:24 WBC 11.2 H RBC 2.96 L Hgb 8.6 L Hct 26.3 L MCV 88.7 MCH 29.2 MCHC 32.9 RDW 15.5 H Plt Count 333 Neut % (Auto) 87.8 H Lymph % (Auto) 11.1 L [place] % (Auto) 1.0 L Eos % (Auto) 0.0 L Baso % (Auto) 0.1 Neut # (Auto) 9900 H Lymph # (Auto) 1300 [place] # (Auto) 100 Eos # (Auto) 0 Baso # (Auto) 0 Sodium Potassium Chloride Carbon Dioxide BUN Creatinine Estimated GFR BUN/Creatinine Ratio Glucose Calcium Magnesium Total Bilirubin AST ALT Alkaline Phosphatase Total Protein Albumin Globulin Albumin/Globulin Ratio Urine Color Urine Appearance Urine pH Ur Specific [place] Urine Protein Urine Glucose (UA) Urine Ketones Urine Occult Blood Urine Nitrate Urine Bilirubin Urine Urobilinogen Ur Leukocyte Esterase Urine RBC Urine WBC Ur Squamous Epith Cells Ur Transition Epith Cell Urine Bacteria Ur Culture Indicated? SARS-CoV-2 (PCR) Blood Type Antibody Screen [facility] Medical History No significant medical problems Family History Father Diabetes mellitus Social History (Updated 10/04/21 @ 12:29 by Rebecca Botello CNM) marital status: household members: spouse and children lives independently: Yes caregiver/support person: No housing: house Smoking Status: Never smoker Assessment & Plan Post-op Postoperative Procedures: Procedures Operation Date: 10/14/21 08:15 Actual Procedure Side Surgeon p Dilation and Curettage Not Applicable Sonal Alvarez MD Postoperative day: 0 Postoperative status narrative: Minimal bleeding from uterine tamponade balloon or vaginally Postoperative plan: routine post-op care Postoperative plan narrative: Will start deflating the uterine tamponade balloon at midnight. Hopefully home tomorrow if improve symptomatically. Time Spent With Patient Time with patient: less than 15 minutes Quality VTE Deep Vein Thrombosis/Pulmonary Embolism Present on Admission: No
--- NOTE | 2021-10-14 19:30 | PC.NURSE ---
Every void other than bedside commode was done using a bedpan. pt did not want to get up and go to the bathroom all day. pt encouraged to pump all day too. pt pumped twice. She is going to pump again now.
[2021-10-15] VITALS (9 sets, daily range): BP systolic 109–125; BP diastolic 63–78; PULSE 76–102; RESP 16–19; TEMP 36.6–37.8; O2SAT 98–100
[2021-10-15 06:54] LABS: Add Manual Diff / Slide Review NO; Basophils Absolute Auto 100 /uL (0-100); Basophils Percent Auto 0.6 % (0-2); Eosinophils Absolute Auto 0 /uL (0-450); Eosinophils Percent Auto 0.3 % (2-4); Lymphocytes Absolute Auto 4000 /uL (1100-4500); Lymphocytes Percent Auto 39.1 % (25-40); Mean Corpuscular HGB Conc 33.3 % (30-36); Mean Corpuscular Hemoglobin 29.9 PG (26-34); Mean Corpuscular Volume 89.6 fL (80-100); Monocytes Absolute Auto 600 /uL (0-900); Monocytes Percent Auto 5.8 % (3-14); Neutrophils Absolute Auto 5500 /uL (1500-7000); Neutrophils Percent Auto 54.2 % (50-75); Platelet Count 241 X10^3/uL (150-400); Red Blood Cell Count 2.26 X10^6/uL (4.0-5.2); Red Cell Distribution Width 15.9 % (11.6-14.8); White Blood Cell Count 10.2 X10^3/uL (4.5-11.0)
[2021-10-15 06:56] LABS: Hematocrit 20.3 % (36-46); Hemoglobin 6.8 g/dL (12.0-16.0)
[2021-10-15] MEDS: IRON SUCROSE 100 MG in SODIUM CHLORIDE 0.9% 100 ML 420 ML IV (08:22)
--- NOTE | 2021-10-15 09:09 | PC.NURSE ---
bakri late entry......... started to decrease the Bakri balloon at 0015 10/15/21 by 50 cc every hour. 0015 decreased 50cc, no bleeding from patient. 0115 decreased another 50cc , patient tolerated well 0215 decreased another 50cc to total 150cc 0315 the last decrease was 40 cc. still no bleeding from patient. does not have any complaints is not bleeding she is afraid that she will start bleeding again. Bakri d/c at 0325, patient tolerated well and is not bleeding
--- NOTE | 2021-10-15 09:18 | PC.NURSE ---
bakri 0015 started deflating bakri balloon by 50cc, patient talerated well 0115 decreased by 50 cc more 0215 decreased by 50cc 0315 decreased by the remainder amount of 40cc. 0335 bakri balloon discontinued patient tolerated well and is not bleeding.
--- NOTE | 2021-10-15 09:29 | PC.NURSE ---
VS have been stable
--- NOTE | 2021-10-15 09:43 | PC.NURSE ---
activity patient has been reluctant to get up and move around. she did use the bedside cammode one time on the shift nurse manager around 1999. was able to sit for a few minutes while the nurse changed the linen. she started to feel light headed so she got back into be and has not gotten up since.
--- NOTE | 2021-10-15 13:15 | PM.PNPO.1 ---
Subjective Subjective Date Patient Seen: 10/15/21 Time Patient Seen: 13:16 Interval history: Patient is feeling better. She was able to get up to the commode. She is going to try to walk further later today. Given the options patient states she would like to go home today if she is able to ambulate. Exam Vital Signs (past 8 hours): - 10/15/21 08:54 Pulse Rate 82 Respiratory Rate 17 Blood Pressure 116/63 Pulse Oximetry 98 Oxygen Delivery Method Room Air Narrative Exam Narrative: Patient's abdomen is soft, nontender. Uterus is firm, U -3, nontender. Minimal vaginal bleeding. Extremities without edema and nontender. Objective Labs Result Diagrams: 10/15/21 06:29 10/14/21 04:40 Labs: Laboratory Results - last 24 hr 10/14/21 10/15/21 13:24 06:29 WBC 11.2 H 10.2 RBC 2.96 L 2.26 L Hgb 8.6 L 6.8 L* Hct 26.3 L 20.3 L* MCV 88.7 89.6 MCH 29.2 29.9 MCHC 32.9 33.3 RDW 15.5 H 15.9 H Plt Count 333 241 Neut % (Auto) 87.8 H 54.2 D Lymph % (Auto) 11.1 L 39.1 D [place] % (Auto) 1.0 L 5.8 Eos % (Auto) 0.0 L 0.3 L Baso % (Auto) 0.1 0.6 Neut # (Auto) 9900 H 5500 Lymph # (Auto) 1300 4000 [place] # (Auto) 100 600 Eos # (Auto) 0 0 Baso # (Auto) 0 100 PFSH Medical History No significant medical problems Family History Father Diabetes mellitus Social History (Updated 10/04/21 @ 12:29 by Rebecca Botello CNM) marital status: household members: spouse and children lives independently: Yes caregiver/support person: No housing: house Smoking Status: Never smoker Assessment & Plan Post-op Assessment and plan (1) Acute blood loss anemia: Postoperative Procedures: Procedures Operation Date: 10/14/21 08:15 Actual Procedure Side Surgeon p Dilation and Curettage Not Applicable Sonal Alvarez MD Postoperative day: 1 Postoperative status narrative: Patient seems to be improving. She will try to ambulate further later today and home if she is ambulatory. Time Spent With Patient Time with patient: less than 15 minutes Quality VTE Deep Vein Thrombosis/Pulmonary Embolism Present on Admission: No
[2021-10-15] MEDS: DOCUSATE 100 MG CAPSULE PO ×2 (14:26→20:45)
[2021-10-16 02:23] VITALS: BP 117/56; PULSE 87; RESP 16; TEMP 36.6; O2SAT 99
--- NOTE | 2021-10-16 04:58 | PC.NURSE ---
pt has remained stable pain free with scant bleeding throughout the shift/declines pain medication of any kind-accepts stool softener-pt denies dizziness is ambulating up to BR welland in the room-color in cheeks-pt remains chilled and requests warm blankets-otherwise asymptomatic
--- NOTE | 2021-10-16 05:04 | PC.NURSE ---
Pt has regained appetite and is drinking adequate fluids/ at bedside offering support-this RN has encouraged rest throughout the night to promote strength and healing, lights off, clustering care- states, you haven't slept in days.
--- NOTE | 2021-10-16 05:22 | PC.NURSE ---
checked in to assess pt- in a deep sleep-will check back in and assess when wakeful
--- NOTE | 2021-10-16 06:45 | PC.NURSE ---
pt awake up to BR voiding well-ordered breakfast drinking water and apple juice-not feeling cold at this time
[2021-10-16 06:47] VITALS: BP 130/72; PULSE 100; RESP 17; TEMP 37.1; O2SAT 99
[2021-10-16 07:13] LABS: Hematocrit 21.8 % (36-46); Hemoglobin 7.2 g/dL (12.0-16.0)
--- NOTE | 2021-10-16 07:52 | P.DS_ITS ---
History of Present Illness History of Present Illness Date Patient Seen: 10/16/21 Time Patient Seen: 07:53 Date of Onset of Symptoms: 10/14/21 Chief complaint: bleeding Narrative: Patient who had hemorrhage 10 days treated with D&C and uterine tamponade balloon. Patient is still somewhat fatigued when she ambulates but is ready to be discharged home. Discharge Providers Provider Date of admission: 10/14/21 06:02 Discharge Date: 10/16/21 Discharge provider: Sonal Alvarez MD Summary Status at Discharge Cognitive/behavioral status at discharge: oriented Functional status at discharge: independent ambulation Overall status at discharge: patient is progressing back to baseline Time Spent with Patient Time spent: Less than 30 minutes Exam Vital Signs (past 8 hours): - 10/16/21 02:23 10/16/21 06:47 Temperature 98 F 98.8 F Pulse Rate 87 100 H Respiratory Rate 16 17 Blood Pressure 117/56 L 130/72 Pulse Oximetry 99 99 Oxygen Delivery Method Room Air Oxygen Flow Rate 0 Narrative Exam Narrative: Abdomen is soft, nontender. Uterus is firm, U -3, nontender. Mild lochia. Extremities without edema and nontender. Objective Labs Result Diagrams: 10/16/21 06:43 10/14/21 04:40 Labs: Laboratory Results - last 24 hr 10/16/21 06:43 Hgb 7.2 L Hct 21.8 L PFSH Medical History No significant medical problems Family History Father Diabetes mellitus Social History (Updated 10/04/21 @ 12:29 by Rebecca Botello CNM) marital status: household members: spouse and children lives independently: Yes caregiver/support person: No housing: house Smoking Status: Never smoker Discharge Assessment & Plan Assessment and Plan Assessment: Patient is improving post 10 day hemorrhage with D&C for retained products of conception. Plan of Treatment: 1 more dose of IV iron therapy and discharged today Discharge Plan Discharge Plan Patient Disposition: Home Provider Discharge Comment: patient is to take [id number] iron and stool softeners Discharge orders & Medications Prescriptions: New docusate sodium 100 mg capsule 100 mg PO BID Qty: 30 0RF Rx Instructions: Take twice daily for constipation. Follow up/Referrals: Rebecca Botello CNM [Advanced Batch Freezer Operator] - ( patient already has a follow-up appointment on October 18) Diet/Activity/Treatments Diet: Regular Activity: nothing in vagina until cleared by her rope silica machine operator Skin/Wound/Dressing Care Report to your healthcare provider any signs of infection, such as:: chills, fever and increased pain Quality VTE Deep Vein Thrombosis/Pulmonary Embolism Present on Admission: No
[2021-10-16] MEDS: IRON SUCROSE 200 MG in SODIUM CHLORIDE 0.9% 100 ML 220 ML IV (08:48)
[2021-10-16] MEDS: DOCUSATE 100 MG CAPSULE PO (08:48)
[2021-10-16 08:50] VITALS: BP 125/70; PULSE 81; RESP 16; TEMP 36.7
--- NOTE | 2021-10-16 09:29 | PC.NURSE ---
08:50 Patient is doing well sitting up in bed resting. Patient would like to go home today as soon as possible. Patient offers no complaints of pain and declines Tylenol or ibuprofen. 08:40 Dr. Alvarez at bedside plan for patient to receive IV iron and discharge this morning. 09:00 IV in left arm flushed, patent, patient denies pain, iron started in L arm, patient doing well. 09:10 IV in left arm leaking a small amount of fluid. IV d/c. IV in right arm flushed and patent. IV started, patient offers no complaints.
--- NOTE | 2021-10-16 11:12 | PC.NURSE ---
written and verbal d/c instructions given to patient. patient verbalized understanding. awaiting arrival of for d/c
== END 2021-10-16 12:00 | disposition home or self-care (01) | DRG 769 ==
LOC: ED 06:00 → AC 06:18 → LABOR 10:52 → AC 10:55 → LABOR 10:55
PROVIDERS: Admitting Provider Specialist; Emergency Provider Emergency Medicine; Referring Provider Emergency Medicine; Visit Provider Specialist
PROC: 10D17Z9 Manual Extraction of Products of Conception, Retained, Via Natural or Artificial Opening (ICD-10-PCS; CPT 58120; principal; 2021-10-14 08:15)
DX: O72.2 Delayed and secondary postpartum hemorrhage (principal)
CPT/HCPCS: 36415; 59160; 59899; 76857; 80053; 81001; 83735; 85014; 85018; 85025; 86850; 86900; 86901; 87635; 99284; 99291; 99292; C9803; J1100; J1756; J2210; J2250; J2405; J2704; J3010; S0191